=== PATIENT | female | born 1940 | race Caucasian/White ===

== ENCOUNTER → 2017-06-12 | Outpatient (CLI) | payer MEDICARE, BC ==
[~2017-06-12] MED LIST: ARIMIDEX1 MG PO; ASPI325T6 PO; CELEXA10 MG PO; CITRACAL + D CA1 TAB PO; DEXILANT60 MG PO; EPIPEN 2-PAK1 MG/ML IM; FLONASEALLERGY NS; KLONOPIN 0.5MG0.5 MG PO; LOPRESSOR 225 MG/TAB PO; MULTIPLE VITAMI1 CAP PO; NEXIUM 40MG40 MG PO; NORCO 325 MG-51 TAB PO; NORCO 325 MG-7.1 TAB PO; PROTONIX 40MG T40 MG PO; ZYRTEC 10MG10 MG PO
== END ==
LOC: COL.RAD 14:07
DX: M25.512 Pain in left shoulder (principal)
CPT/HCPCS: J3301; Q9967

== ENCOUNTER 2017-07-03 14:38 | Inpatient (IN) | payer MEDICARE, BC ==
[~2017-07-03] VITALS: Ht 170.2 cm; Wt 74.2 kg
[~2017-07-03 14:38] MED LIST changes: -ARIMIDEX1 MG PO; -ASPI325T6 PO; -EPIPEN 2-PAK1 MG/ML IM; -FLONASEALLERGY NS; -NEXIUM 40MG40 MG PO; -NORCO 325 MG-7.1 TAB PO; -PROTONIX 40MG T40 MG PO
[2017-08-18] MEDS ORDERED: FLONASEALLERGY NS (10:24)
[2017-08-18] MEDS ORDERED: ARIMIDEX1 MG PO (10:25)
[2017-08-18] MEDS ORDERED: EPIPEN 2-PAK1 MG/ML IM (10:25)
[2017-08-18] MEDS ORDERED: PROTONIX 40MG T40 MG PO (10:26)
[2017-08-18] MEDS ORDERED: NEXIUM 40MG40 MG PO (10:49)
[2017-08-19] VITALS (11 sets, daily range): BP systolic 120–144; BP diastolic 62–91; PULSE 58–112; TEMP 97.7–98.2
[2017-08-20 00:02] VITALS: BP 123/65; PULSE 104; TEMP 97.9
[2017-08-20 03:56] VITALS: BP 143/74; PULSE 102; TEMP 98.2
[2017-08-20 04:22] LABS: HEMATOCRIT 31.5 % (37.0-47.0); HEMOGLOBIN 10.3 g/dl (12.5-16.0)
[2017-08-20 07:59] VITALS: BP 116/52; PULSE 90; TEMP 98.7
[2017-08-20] MEDS ORDERED: NORCO 325 MG-7.1 TAB PO (10:02)
[2017-08-20] MEDS ORDERED: ASPI325T6 PO (10:02)
[2017-08-20 11:38] VITALS: BP 106/44; PULSE 83; TEMP 98.2
== END 2017-08-20 15:23 | disposition home or self-care (01) | DRG 483 ==
LOC: JCC 08-19 08:52
PROVIDERS: Orthopaedic Surgery
PROC: 3E0233Z Introduction of Anti-inflammatory into Muscle, Percutaneous Approach (ICD-10-PCS; 2017-08-19)
PROC: 0RRK0JZ Replacement of Left Shoulder Joint with Synthetic Substitute, Open Approach (ICD-10-PCS; principal; 2017-08-19 13:25)
DX: M19.012 Primary osteoarthritis, left shoulder (principal); M19.042 Primary osteoarthritis, left hand
CPT/HCPCS: A4315; A9284; C1713; C1776; J0171; J0690; J1100; J1800; J1885; J2270; J2405; J2704; J3010; J3301; J7120

== ENCOUNTER → 2017-08-08 | Outpatient (CLI) | payer MEDICARE, BC ==
[~2017-08-08] MED LIST changes: +ARIMIDEX1 MG PO; +ASPI325T6 PO; +CIPRO 500MG TA500 MG PO; +EPIPEN 2-PAK1 MG/ML IM; +FLONASEALLERGY NS; +MACROBID 1100 MG/CAP PO; +MUCINEX1200 MG PO; +NEXIUM 40MG40 MG PO; +NORCO 325 MG-7.1 TAB PO; +PREDNISONE20 MG PO; +PROTONIX 40MG T40 MG PO; +PYRIDIUM 100MG100 MG
[2017-08-08 13:31] LABS: HIV 1/2 Antibodies Non-Reactive; HIV-1p24 Antigen Non-Reactive
== END ==
LOC: COL.LAB 10:22
PROVIDERS: Orthopaedic Surgery
DX: Z01.812 Encounter for preprocedural laboratory examination (principal)

== ENCOUNTER 2017-08-11 12:41 | Outpatient (RCR) | payer MEDICARE, BC ==
[~2017-08-11 12:41] MED LIST changes: -ARIMIDEX1 MG PO; -ASPI325T6 PO; -CIPRO 500MG TA500 MG PO; -EPIPEN 2-PAK1 MG/ML IM; -FLONASEALLERGY NS; -MACROBID 1100 MG/CAP PO; -MUCINEX1200 MG PO; -NEXIUM 40MG40 MG PO; -NORCO 325 MG-7.1 TAB PO; -PREDNISONE20 MG PO; -PROTONIX 40MG T40 MG PO; -PYRIDIUM 100MG100 MG
== END 2017-08-12 09:51 ==
LOC: MKS.ESL.PT 12:41
DX: Z01.818 Encounter for other preprocedural examination (principal)
CPT/HCPCS: G8990-GP; G8991-GP; G8992-GP

== ENCOUNTER 2017-10-12 19:25 | Emergency (ER) | payer MEDICARE, BC ==
[~2017-10-12] VITALS: Ht 157.5 cm; Wt 78.2 kg
[2017-10-12 19:25] VITALS: TEMP 98.3
[~2017-10-12 19:25] MED LIST changes: +ARIMIDEX1 MG PO; +ASPI325T6 PO; +EPIPEN 2-PAK1 MG/ML IM; +FLONASEALLERGY NS; +NEXIUM 40MG40 MG PO; +NORCO 325 MG-7.1 TAB PO; +PROTONIX 40MG T40 MG PO
[2017-10-12] MEDS ORDERED: MACROBID 1100 MG/CAP PO (19:42)
[2017-10-12] MEDS ORDERED: PYRIDIUM 100MG100 MG (19:43)
[2017-10-12] MEDS ORDERED: CIPRO 500MG TA500 MG PO (20:58)
[2017-10-12] MEDS ORDERED: PREDNISONE20 MG PO (20:58)
[2017-10-12 21:00] VITALS: BP 146/77; PULSE 82
== END 2017-10-12 21:08 | disposition home or self-care (01) ==
LOC: COL.ER 19:25
DX: R21 Rash and other nonspecific skin eruption (principal); T78.40XA Allergy, unspecified, initial encounter; I10 Essential (primary) hypertension; F32.9 Major depressive disorder, single episode, unspecified; K21.9 Gastro-esophageal reflux disease without esophagitis; Z85.3 Personal history of malignant neoplasm of breast; Z90.711 Acquired absence of uterus with remaining cervical stump; Z90.49 Acquired absence of other specified parts of digestive tract; Z98.51 Tubal ligation status; Z98.890 Other specified postprocedural states
CPT/HCPCS: J7512

== ENCOUNTER 2017-10-13 15:52 | Observation (INO) | payer MEDICARE, BC ==
[~2017-10-13] VITALS: Ht 154.9 cm; Wt 78.7 kg
[2017-10-13 16:42] LABS: BASO % 0.2 % (0.0-2.0); GRAN # 14.6 (1.4-6.5); GRAN % 89.7 % (42.2-75.2); HEMATOCRIT 33.7 % (37.0-47.0); HEMOGLOBIN 11.1 g/dl (12.5-16.0); LYMPH # 0.9 (1.2-3.4); LYMPH % 5.5 % (20.0-51.0); MEAN CELL VOLUME 89 fl (80.0-100.0); MEAN CORPUSCULAR HEMOGLOBIN 29 pg (27.0-31.0); MEAN CORPUSCULAR HGB CONC 33 g/dl (33.0-37.0); MEAN PLATELET VOLUME 9.4 fl (7.4-10.4); MONO # 0.6 (0.1-0.6); MONO % 3.9 % (1.7-9.3); PLATELET COUNT 243 K/mm3 (130-400); WHITE BLOOD COUNT 16.2 K/mm3 (4.8-10.8)
[2017-10-13 16:45] LABS: ADJUSTED CALCIUM 9.3 mg/dL (8.4-10.2); ALANINE AMINOTRANSFERASE 26 U/L (9-52); ALBUMIN 4.3 gm/dL (3.5-5.0); ALKALINE PHOSPHATASE 84 U/L (50-136); ANION GAP 13 mmol/L (7-16); BILIRUBIN,TOTAL 0.3 mg/dL (0.0-1.0); BLOOD UREA NITROGEN 14 mg/dL (7-17); CALCIUM 9.5 mg/dL (8.4-10.2); CARBON DIOXIDE 23 mmol/L (22-30); CHLORIDE 101 mmol/L (98-107); CREATININE, serum 0.78 mg/dL (0.52-1.25); GLUCOSE 146 mg/dL (74-106); POTASSIUM 4.1 mmol/L (3.4-5.0); SODIUM 137 mmol/L (137-145); TOTAL PROTEIN 7.6 gm/dL (6.4-8.2)
[2017-10-13 16:50] LABS: PARTIAL THROMBOPLASTIN TIME 28.5 SECONDS (26.0-37.0)
[2017-10-13 16:54] LABS: B-TYPE NATRIURETIC PEPTIDE 941 pg/mL (0-450); TROPONIN-I < 0.012 ng/mL (0.000-0.034)
[2017-10-13 21:50] VITALS: BP 138/65; PULSE 85; TEMP 98.1
[2017-10-14 01:15] VITALS: BP 126/63; PULSE 83; TEMP 97.5
[2017-10-14 05:12] VITALS: BP 116/57; PULSE 86; TEMP 97.7
[2017-10-14 06:55] LABS: BASO % 0.1 % (0.0-2.0); GRAN # 12.1 (1.4-6.5); GRAN % 86.7 % (42.2-75.2); LYMPH # 1.2 (1.2-3.4); LYMPH % 8.5 % (20.0-51.0); MEAN CELL VOLUME 88 fl (80.0-100.0); MEAN CORPUSCULAR HGB CONC 33 g/dl (33.0-37.0); MEAN PLATELET VOLUME 9.4 fl (7.4-10.4); MONO # 0.6 (0.1-0.6); MONO % 4.1 % (1.7-9.3); PLATELET COUNT 245 K/mm3 (130-400); RED BLOOD COUNT 3.53 M/mm3 (4.10-5.30)
[2017-10-14 06:58] LABS: CALCIUM 9.2 mg/dL (8.4-10.2); CHOLESTEROL RISK RATIO 3.1; CREATININE, serum 0.73 mg/dL (0.52-1.25); HEMATOCRIT 31.2 % (37.0-47.0); HEMOGLOBIN 10.3 g/dl (12.5-16.0); MEAN CORPUSCULAR HEMOGLOBIN 29 pg (27.0-31.0); POTASSIUM 4.1 mmol/L (3.4-5.0)
[2017-10-14 07:00] VITALS: BP 130/62; PULSE 81; TEMP 98.3
[2017-10-14 11:00] VITALS: BP 151/70; PULSE 85; TEMP 98.5
[2017-10-14 16:47] VITALS: BP 130/71; PULSE 71; TEMP 98.1
[2017-10-14 19:56] VITALS: BP 131/67; PULSE 71; TEMP 98.3
[2017-10-15] VITALS (7 sets, daily range): BP systolic 131–164; BP diastolic 53–88; PULSE 66–113; TEMP 98.1–98.5
== END 2017-10-15 18:05 | disposition home or self-care (01) ==
LOC: COL.ER 15:52 → MEDICAL 17:57
PROVIDERS: Emergency Medicine; Nurse Practitioner
DX: I20.0 Unstable angina (principal); I10 Essential (primary) hypertension; Z77.22 Contact with and (suspected) exposure to environmental tobacco smoke (acute) (chronic); N30.00 Acute cystitis without hematuria; Z96.612 Presence of left artificial shoulder joint; K21.9 Gastro-esophageal reflux disease without esophagitis; I49.9 Cardiac arrhythmia, unspecified; R73.9 Hyperglycemia, unspecified; I11.9 Hypertensive heart disease without heart failure; I08.1 Rheumatic disorders of both mitral and tricuspid valves; F32.9 Major depressive disorder, single episode, unspecified; Z85.3 Personal history of malignant neoplasm of breast; Z79.811 Long term (current) use of aromatase inhibitors; M19.90 Unspecified osteoarthritis, unspecified site; Z80.0 Family history of malignant neoplasm of digestive organs; Z80.8 Family history of malignant neoplasm of other organs or systems; Z80.9 Family history of malignant neoplasm, unspecified; L50.0 Allergic urticaria; T37.8X5A Adverse effect of other specified systemic anti-infectives and antiparasitics, initial encounter; Y92.230 Patient room in hospital as the place of occurrence of the external cause
CPT/HCPCS: A9502; A9539; A9540; G0378; J1650; J2785; J7512

== ENCOUNTER → 2017-10-13 | Outpatient (CLI) | payer MEDICARE, BC ==
[~2017-10-13] MED LIST changes: +CIPRO 500MG TA500 MG PO; +MACROBID 1100 MG/CAP PO; +PREDNISONE20 MG PO; +PYRIDIUM 100MG100 MG
== END ==
LOC: MC.RAD 09-12 10:00
DX: Z12.31 Encounter for screening mammogram for malignant neoplasm of breast (principal); Z85.3 Personal history of malignant neoplasm of breast; Z90.12 Acquired absence of left breast and nipple

== ENCOUNTER 2017-11-12 14:00 | Outpatient (RCR) | payer MEDICARE, BC | END 2017-11-23 | LOC: MKS.ESL.PT | DX: Z96.612 Presence of left artificial shoulder joint (principal); M19.012 Primary osteoarthritis, left shoulder | CPT/HCPCS: G8990-GP; G8991-GP ==

== ENCOUNTER 2017-12-10 12:30 | Outpatient (RCR) | payer MEDICARE, BC | END 2018-03-03 | LOC: MKS.ESL.PT | DX: M19.012 Primary osteoarthritis, left shoulder (principal) ==

== ENCOUNTER 2018-07-26 14:58 | Emergency (ER) | payer MEDICARE, BC ==
[~2018-07-26] VITALS: Ht 157.5 cm; Wt 79.1 kg
[2018-07-26 15:11] VITALS: TEMP 99
[2018-07-26] MEDS ORDERED: MUCINEX1200 MG PO (15:40)
[2018-07-26 15:46] LABS: BASO # 0.1 (0.0-0.2); BASO % 0.7 % (0.0-2.0); EOS # 0.3 (0.0-0.7); GRAN # 5.5 (1.4-6.5); GRAN % 64.7 % (42.2-75.2); HEMOGLOBIN 11.3 g/dl (12.5-16.0); LYMPH # 1.8 (1.2-3.4); LYMPH % 21.6 % (20.0-51.0); MEAN CELL VOLUME 85 fl (80.0-100.0); MEAN CORPUSCULAR HEMOGLOBIN 28 pg (27.0-31.0); MEAN CORPUSCULAR HGB CONC 33 g/dl (33.0-37.0); MONO # 0.7 (0.1-0.6); MONO % 8.3 % (1.7-9.3); PLATELET COUNT 326 K/mm3 (130-400); RED BLOOD COUNT 3.99 M/mm3 (4.10-5.30)
[2018-07-26 15:50] LABS: HEMATOCRIT 33.9 % (37.0-47.0)
[2018-07-26 15:53] LABS: INR 1.1 (0.8-3.0); PROTHROMBIN TIME 12.3 SECONDS (9.7-12.8)
[2018-07-26 15:56] LABS: ALANINE AMINOTRANSFERASE 35 U/L (9-52); ALBUMIN 3.8 gm/dL (3.5-5.0); ALKALINE PHOSPHATASE 80 U/L (50-136); ANION GAP 14 mmol/L (7-16); AST,SGOT 29 U/L (15-37); BILIRUBIN,TOTAL 0.3 mg/dL (0.0-1.0); BLOOD UREA NITROGEN 14 mg/dL (7-17); CARBON DIOXIDE 26 mmol/L (22-30); CHLORIDE 102 mmol/L (98-107); CREATININE, serum 0.66 mg/dL (0.52-1.25); GLUCOSE 101 mg/dL (74-106); SODIUM 141 mmol/L (137-145); TOTAL PROTEIN 7.5 gm/dL (6.4-8.2)
[2018-07-26 16:08] LABS: TROPONIN-I < 0.012 ng/mL (0.000-0.034)
[2018-07-26 17:29] VITALS: BP 142/83; PULSE 80
== END 2018-07-26 17:29 | disposition home or self-care (01) ==
LOC: COL.ER 14:58
PROVIDERS: Emergency Medicine
DX: M54.2 Cervicalgia (principal); I10 Essential (primary) hypertension; Z85.3 Personal history of malignant neoplasm of breast; Z90.49 Acquired absence of other specified parts of digestive tract; Z98.890 Other specified postprocedural states

== ENCOUNTER → 2018-10-14 | Outpatient (CLI) | payer MEDICARE, BC ==
[~2018-10-14] MED LIST changes: +MUCINEX1200 MG PO
== END ==
LOC: MC.RAD 14:03
DX: Z12.31 Encounter for screening mammogram for malignant neoplasm of breast (principal); Z85.3 Personal history of malignant neoplasm of breast; Z90.12 Acquired absence of left breast and nipple

== ENCOUNTER → 2018-12-11 | Outpatient (CLI) | payer MEDICARE, BC ==
[2018-12-11 12:38] LABS: BASO # 0.1 (0.0-0.2); BASO % 0.7 % (0.0-2.0); EOS # 0.4 (0.0-0.7); EOS % 4.5 % (0-4.0); GRAN # 5.4 (1.4-6.5); LYMPH # 2.2 (1.2-3.4); LYMPH % 25.2 % (20.0-51.0); MEAN CELL VOLUME 86 fl (80.0-100.0); MEAN CORPUSCULAR HEMOGLOBIN 29 pg (27.0-31.0); MEAN CORPUSCULAR HGB CONC 33 g/dl (33.0-37.0); MEAN PLATELET VOLUME 9.5 fl (7.4-10.4); MONO # 0.7 (0.1-0.6); MONO % 8.4 % (1.7-9.3); PLATELET COUNT 244 K/mm3 (130-400); RED BLOOD COUNT 4.21 M/mm3 (4.10-5.30); REDCELL DISTRIBUTION WIDTH-CV 13.6 % (11.5-14.5)
[2018-12-11 12:41] LABS: HEMATOCRIT 36.3 % (37.0-47.0)
[2018-12-11 12:56] LABS: TROPONIN-I < 0.012 ng/mL (0.000-0.034)
[2018-12-11 13:18] LABS: ANION GAP 7 mmol/L (7-16); BLOOD UREA NITROGEN 13 mg/dL (7-17); CALCIUM 9.2 mg/dL (8.4-10.2); CARBON DIOXIDE 29 mmol/L (22-30); CHLORIDE 104 mmol/L (98-107); CREATININE, serum 0.81 mg/dL (0.52-1.25); GLUCOSE 89 mg/dL (74-106); SODIUM 141 mmol/L (137-145)
== END ==
LOC: COL.LAB 11:40
PROVIDERS: Nurse Practitioner Family
DX: R07.9 Chest pain, unspecified (principal); R06.02 Shortness of breath

== ENCOUNTER → 2018-12-11 | Outpatient (CLI) | payer MEDICARE, BC ==
--- NOTE | 2018-12-11 15:38 | NUR ---
PT WAS GIVEN BENADRYL 25 MG SIVP AND 10 CC NS FOLLOWING. TEST WAS COMPLETED. PT BROUGHT TO RAD HOLDING. PT WATCHING TV. NO DROWSINESS OR REACTION FORM HIVES NOTED. 1538 PT WAS TAKEN TO POV PER DR SALINAS ORDERS. PT STATES SHE FEELS FINE TO DRIVE. NO DROWSINESS, GAIT STEADY AND PT IS ABLE TO DRESS HERSELF WITHOUT ISSUE.
== END ==
LOC: COL.RAD 14:04
DX: R07.9 Chest pain, unspecified (principal); R06.02 Shortness of breath; Z98.890 Other specified postprocedural states
CPT/HCPCS: J1200; Q9967

== ENCOUNTER 2019-03-10 14:15 | Outpatient (RCR) | payer MEDICARE, BC | END 2019-04-27 16:00 | disposition home or self-care (01) | LOC: MKS.ESL.PT 14:15 | DX: S76.311A Strain of muscle, fascia and tendon of the posterior muscle group at thigh level, right thigh, initial encounter (principal) ==

== ENCOUNTER → 2019-10-15 | Outpatient (CLI) | payer MEDICARE, BC | LOC: MC.RAD 13:30 | DX: Z12.31 Encounter for screening mammogram for malignant neoplasm of breast (principal); Z98.890 Other specified postprocedural states; Z92.3 Personal history of irradiation; Z85.3 Personal history of malignant neoplasm of breast ==

== ENCOUNTER → 2020-02-08 | Outpatient (CLI) | payer MEDICARE, BC | LOC: COL.RAD 08:07 | DX: M25.552 Pain in left hip (principal) | CPT/HCPCS: J3301; Q9967 ==

== ENCOUNTER → 2020-10-16 | Outpatient (CLI) | payer MEDICARE, BC | LOC: MC.RAD 09:41 | DX: Z12.31 Encounter for screening mammogram for malignant neoplasm of breast (principal); Z98.890 Other specified postprocedural states; Z85.3 Personal history of malignant neoplasm of breast ==

== ENCOUNTER 2020-11-22 09:38 | Inpatient (IN) | payer MEDICARE, BC ==
[~2020-11-22] VITALS: Ht 156.2 cm; Wt 72.4 kg
[2020-11-22 10:17] LABS: BASO # 0.1 (0.0-0.2); BASO % 0.7 % (0.0-2.0); EOS # 0.3 (0.0-0.7); EOS % 2.6 % (0-4.0); GRAN # 7.6 (1.4-6.5); GRAN % 65.6 % (42.2-75.2); HEMATOCRIT 37.4 % (37.0-47.0); HEMOGLOBIN 12.2 g/dl (12.5-16.0); LYMPH # 2.6 (1.2-3.4); LYMPH % 22.5 % (20.0-51.0); MEAN CELL VOLUME 87 fl (80.0-100.0); MEAN CORPUSCULAR HEMOGLOBIN 28 pg (27.0-31.0); MEAN CORPUSCULAR HGB CONC 33 g/dl (33.0-37.0); MEAN PLATELET VOLUME 9.8 fl (7.4-10.4); MONO % 8.3 % (1.7-9.3); PLATELET COUNT 326 K/mm3 (130-400); RED BLOOD COUNT 4.29 M/mm3 (4.10-5.30); REDCELL DISTRIBUTION WIDTH-CV 13.2 % (11.5-14.5)
[2020-11-22 10:22] LABS: PROTHROMBIN TIME 11.5 SECONDS (9.7-12.8)
[2020-11-22 10:24] LABS: PARTIAL THROMBOPLASTIN TIME 30.6 SECONDS (26.0-37.0)
[2020-11-22 10:28] LABS: ALANINE AMINOTRANSFERASE 26 U/L (4-34); ALBUMIN 4.2 gm/dL (3.5-5.0); ALKALINE PHOSPHATASE 65 U/L (50-136); ANION GAP 9 mmol/L (7-16); AST,SGOT 35 U/L (15-37); BILIRUBIN,TOTAL 0.4 mg/dL (0.0-1.0); BLOOD UREA NITROGEN 27 mg/dL (7-17); CALCIUM 8.8 mg/dL (8.4-10.2); CARBON DIOXIDE 26 mmol/L (22-30); CHLORIDE 102 mmol/L (98-107); CREATININE, serum 0.91 (0.52-1.25); GLUCOSE 125 mg/dL (74-106); LIPASE 99 U/L (23-300); MAGNESIUM 1.9 mg/dL (1.6-2.3); PHOSPHOROUS 4.3 mg/dL (2.5-4.5); POTASSIUM 4.1 mmol/L (3.4-5.0); SODIUM 137 mmol/L (137-145); TOTAL PROTEIN 7.4 gm/dL (6.4-8.2)
[2020-11-22 10:46] LABS: TROPONIN-I < 0.012 ng/mL (0.000-0.035)
[2020-11-22 16:55] VITALS: BP 135/68; PULSE 71; TEMP 98.2
--- NOTE | 2020-11-22 19:31 | NUR ---
Called Dr. Rebollar to verify if I can give Sotalol tonight since patient will have Lexiscan tomorrow and he said okay to give it tonight.
[2020-11-22 19:56] VITALS: BP 135/73; PULSE 76; TEMP 97.6
[2020-11-23] VITALS (12 sets, daily range): BP systolic 126–184; BP diastolic 61–102; PULSE 74–106; TEMP 97.8–98.7
--- NOTE | 2020-11-23 00:35 | NUR ---
Patient called saying she is having a hard time sleeping because she felt like she's having palpitations. Upon checking on her heart monitor, her heart rate was at 80bpm. Informed Dr. Wagner and he ordered Melatonin to help patient sleep. Informed patient that currently her heart rate was in a normal range.
--- NOTE | 2020-11-23 07:17 | NUR ---
Patient had uneventful night. Denies chest pain. Patient awake now, doing oral care. Endorsed to Estrella.
--- NOTE | 2020-11-23 07:30 | NUR ---
Patient taken by wheelchair for lexiscan
--- NOTE | 2020-11-23 07:30 | NUR ---
Patient sitting up in bed A&Ox4. VSS. IV CDI, coban covering. Denies pain and discomfort. Patient is NPO and is waiting for a lexiscan. No further needs expressed from the patient. Call light within reach
--- NOTE | 2020-11-23 09:05 | NUR ---
Patient back to room 314 by wheelchair from lianne
[2020-11-23 11:11] LABS: BASO # 0.1 (0.0-0.2); BASO % 0.5 % (0.0-2.0); EOS # 0.2 (0.0-0.7); EOS % 1.5 % (0-4.0); GRAN % 81.1 % (42.2-75.2); HEMATOCRIT 36.4 % (37.0-47.0); HEMOGLOBIN 12.2 g/dl (12.5-16.0); LYMPH # 1.4 (1.2-3.4); LYMPH % 9.7 % (20.0-51.0); MEAN CELL VOLUME 86 fl (80.0-100.0); MEAN CORPUSCULAR HEMOGLOBIN 29 pg (27.0-31.0); MEAN CORPUSCULAR HGB CONC 34 g/dl (33.0-37.0); MEAN PLATELET VOLUME 9.6 fl (7.4-10.4); MONO % 6.6 % (1.7-9.3); PLATELET COUNT 285 K/mm3 (130-400); RED BLOOD COUNT 4.22 M/mm3 (4.10-5.30); REDCELL DISTRIBUTION WIDTH-CV 13.2 % (11.5-14.5)
[2020-11-23 11:20] LABS: CREATININE, serum 0.88 (0.52-1.25); POTASSIUM 4.2 mmol/L (3.4-5.0)
--- NOTE | 2020-11-23 12:47 | NUR ---
[employer] met with patient to discuss discharge planning. Patient lives in [place] with her , Kenton (ph#[phone]) [address] sees Dr. Jones for primary care. [facility]. Patient has a walker and cane, but does not use them normally. Patient is independent with ADLS and patient's RN, Estrella reports patient has been independent in her room. Patient has Advance Directives in EMR which designate her , Kenton and two daughters, Rosina (ph#[phone]) and Alpa as DPOA-HC. Patient plans to return home upon discharge. Patient requested SW call her daughter, Rosina instead of Kenton because Kenton sleeps most of the day. SW contacted Rosina who is in agreement with patient returning home upon discharge. No needs identified at this time.
--- NOTE | 2020-11-23 18:17 | NUR ---
Patient tolerated bedside procedure for loop recorder placement. Incision site CDI. A&Ox4. VSS. IV CDI. Independent in room. Denies pain and discomfort. No further needs expressed from the patient. Call light within reach
--- NOTE | 2020-11-23 19:32 | NUR ---
PT IN BED A/O X3 WITH HOB ELEVATED TO 45 DEGREE ANGLE. DENIES PAIN OR DISCOMFORT. PT STATES THAT SHE FEELS BETTER AND WANTS TO GO HOME [place]. NO NEEDS AT THIS TIME, CALL LIGHT WITHIN REACH.
[2020-11-24 04:21] VITALS: BP 131/60; PULSE 70; TEMP 97.8
[2020-11-24 06:43] LABS: BASO % 0.4 % (0.0-2.0); EOS # 0.2 (0.0-0.7); EOS % 2.4 % (0-4.0); GRAN # 5.5 (1.4-6.5); GRAN % 69.3 % (42.2-75.2); HEMOGLOBIN 11.2 g/dl (12.5-16.0); LYMPH # 1.6 (1.2-3.4); LYMPH % 19.8 % (20.0-51.0); MEAN CELL VOLUME 86 fl (80.0-100.0); MEAN CORPUSCULAR HEMOGLOBIN 28 pg (27.0-31.0); MEAN CORPUSCULAR HGB CONC 33 g/dl (33.0-37.0); MEAN PLATELET VOLUME 9.5 fl (7.4-10.4); MONO # 0.6 (0.1-0.6); MONO % 7.8 % (1.7-9.3); PLATELET COUNT 236 K/mm3 (130-400); RED BLOOD COUNT 3.94 M/mm3 (4.10-5.30); REDCELL DISTRIBUTION WIDTH-CV 12.9 % (11.5-14.5)
--- NOTE | 2020-11-24 06:53 | NUR ---
PT HAD NOT ISSUE THIS SHIFT. PT ADVISED THAT SHE SLEPT WELL AND NO PAIN OR DISCOMFORT. CALL LIGHT WITHIN REACH.
[2020-11-24 06:55] LABS: CALCIUM 8.6 mg/dL (8.4-10.2); CREATININE, serum 0.78 (0.52-1.25); POTASSIUM 3.9 mmol/L (3.4-5.0)
--- NOTE | 2020-11-24 08:00 | NUR ---
PATIENT IS A&O. VSS WITH TELE INPLACE. PATIENT DENIE CHEST PAIN OR SOA. NO C/O N/V. TOLERATING AHA DIET WELL. PATIENT HOPING TO DISCHARGE HOME TODAY. HEAD TO TOE ASSESSMENT WNL. NO OTHER NEEDS. CALL LIGHT IN REACH.
[2020-11-24 08:35] VITALS: BP 154/78; PULSE 78; TEMP 98.3
[2020-11-24] MEDS ORDERED: CLEOCIN HCL300 MG PO (09:14)
[2020-11-24] MEDS ORDERED: BETAPACE 80MG80 MG PO (09:15)
[2020-11-24] MEDS ORDERED: ZESTRIL 10MG10 MG PO (09:35)
[2020-11-24] MEDS ORDERED: ASPIRIN 81M81 MG/TA2 PO (09:35)
--- NOTE | 2020-11-24 09:50 | NUR ---
HOSPITALIST ROUNDING, SEE DISCHARGE ORDERS. PATIENT CALLED DAUGHTER WHO LIVES 3 HOURS AWAY.
--- NOTE | 2020-11-24 12:00 | NUR ---
PATIENT DISCHARGING HOME. GAVE DISCHARGE INSTRUCTIONS, E-SCIPTS SENT, AND DISCUSSED F/U APTS. ANSWERED ALL QUESTIONS/CONCERNS. DC'D RIGHT AC IV, COVERED SITE WITH RICO & KANE. DC'D TELE. PATIENT WAITING FOR HER DAUGHTER. LUNCH TRAY NOW AT BEDSIDE.
--- NOTE | 2020-11-24 12:15 | NUR ---
THE PATIENT'S DAUGHTER IS HERE. PATIENT ESCORTED OUT VIA WC TO PERSONAL VEHICLE.
== END 2020-11-24 12:15 | disposition home or self-care (01) | DRG 262 ==
LOC: COL.ER 09:38 → ICU 12:29 → INPTSU 14:29 → MEDICAL 16:01
PROVIDERS: Emergency Medicine; ADMIT Hospitalist
PROC: 0JH632Z Insertion of Monitoring Device into Chest Subcutaneous Tissue and Fascia, Percutaneous Approach (ICD-10-PCS; principal; 2020-11-23)
DX: I47.2 Ventricular tachycardia (principal); I48.91 Unspecified atrial fibrillation; I25.10 Atherosclerotic heart disease of native coronary artery without angina pectoris; R73.9 Hyperglycemia, unspecified; F32.9 Major depressive disorder, single episode, unspecified; I10 Essential (primary) hypertension; K21.9 Gastro-esophageal reflux disease without esophagitis; M19.90 Unspecified osteoarthritis, unspecified site; Z85.3 Personal history of malignant neoplasm of breast; Z88.0 Allergy status to penicillin
CPT/HCPCS: 99223-AI; 99232-AI; 99239; A9500; J0282; J1650; J2785; J7060

== ENCOUNTER → 2021-10-17 | Outpatient (CLI) | payer MEDICARE, BC ==
[~2021-10-17] MED LIST changes: +ASPIRIN 81M81 MG/TA2 PO; +BETAPACE 80MG80 MG PO; +CLEOCIN HCL300 MG PO; +ZESTRIL 10MG10 MG PO
== END ==
LOC: MC.RAD 09:34
DX: Z12.31 Encounter for screening mammogram for malignant neoplasm of breast (principal); Z98.890 Other specified postprocedural states

== ENCOUNTER → 2023-12-25 | Outpatient (CLI) | payer MEDICARE ==
[2023-12-25 10:53] LABS: BASO # 0.1 K/mm3 (0.0-0.2); BASO % 0.8 % (0.0-2.0); EOS # 0.4 K/mm3 (0.0-0.7); EOS % 5.9 % (0.0-4.0); GRAN # 4.3 K/mm3 (1.4-6.5); GRAN % 59.5 % (42.2-75.2); HEMOGLOBIN 12.4 g/dl (12.5-16.0); LYMPH # 1.8 K/mm3 (1.2-3.4); LYMPH % 25.3 % (20.0-51.0); MEAN CELL VOLUME 84 fl (80.0-100.0); MEAN CORPUSCULAR HEMOGLOBIN 28 pg (27-31); MEAN CORPUSCULAR HGB CONC 34 g/dl (33.0-37.0); MEAN PLATELET VOLUME 9.3 fl (7.4-10.4); MONO # 0.6 K/mm3 (0.1-0.6); MONO % 8.2 % (1.7-9.3); PLATELET COUNT 289 K/mm3 (130-400); RED BLOOD COUNT 4.36 M/mm3 (4.10-5.30); REDCELL DISTRIBUTION WIDTH-CV 13.3 % (11.5-14.5)
[2023-12-25 10:55] LABS: HEMATOCRIT 36.7 % (37.0-47.0)
[2023-12-25 11:10] LABS: ALBUMIN 3.6 gm/dL (3.4-4.8); BILIRUBIN,TOTAL 0.5 mg/dL (0.2-1.2); CALCIUM 9.3 mg/dL (8.4-10.2); CREATININE, serum 0.77 mg/dL (0.57-1.11); POTASSIUM 4.2 mmol/L (3.5-4.5); TOTAL PROTEIN 7.5 gm/dL (6.2-8.1)
[2023-12-25 11:34] LABS: THYROID STIMULATING HORMONE 3.368 uIU/mL (0.350-4.940)
== END ==
LOC: COL.RAD 09:44
PROVIDERS: Student in an Organized Health Care Education/Training Program
DX: I67.89 Other cerebrovascular disease (principal)